=== PATIENT | male | born 2000 ===

== ENCOUNTER 2022-01-08 16:47 | Emergency (ER) | payer SELFPAY ==
[2022-01-08 18:09] VITALS: BP 128/66
== END 2022-01-08 21:16 | disposition left against medical advice (07) ==
LOC: ED 16:47
DX: M79.646 Pain in unspecified finger(s) (principal); Z53.21 Procedure and treatment not carried out due to patient leaving prior to being seen by health care provider; T14.8XXA Other injury of unspecified body region, initial encounter

== ENCOUNTER 2022-04-07 20:34 | Emergency (ER) | payer BC ==
[2022-04-07 23:25] VITALS: BP 125/81
[2022-04-08] MEDS ORDERED: IBUPROFEN 600 MG TAB PO ONE (00:49)
[2022-04-08] MEDS ORDERED: ACETAMINOPHEN 500 MG TAB PO ONE (00:49)
[2022-04-08] MEDS ORDERED: NEOMY 3.5 MG/BACIT 400 UNITS/POLY B 5000 UNITS/GM OINT PACKET TP ONE (00:49)
[2022-04-08] MEDS ORDERED: AMOXICILLIN/K CLAV 875/125MG TAB PO ONE (00:52)
--- NOTE | 2022-04-08 01:23 | Emergency Department Report ---
ED Animal Bite HPI - General Chief Complaint: Animal Bite Stated Complaint: DOG BITE Source: patient Mode of arrival: Ambulatory Limitations: No Limitations - History of Present Illness Initial Comments: Patient is a 21-year-old -[place] male with no past medical history presents to the ED with complaint of acute onset persistent left thigh pain due to multiple puncture wounds from a dog bite about 7 hours ago. Patient states that he was play fighting with his girlfriend when the family's dog attacked him and bit him on the left thigh. Patient states that he suspects that the dog is fully vaccinated. Patient states that the pain has been constant and persistent and that he has not been able to sleep because of worsening pain. Patient denies dizziness, syncope, nausea, vomiting, chest pain, shortness of breath, fall, numbness and tingling or weakness of lower extremities bilaterally. MD Complaint: animal bite, animal-related injury (dog bite injury), other (left thigh multiple puncture wounds) -: Sudden, hour(s) (7) Location: other (left thigh) Left: Thigh (multiple puncture wounds from dog bite) Animal: dog Animal Control Notified: No Description: household pet, immunizations UTD, appeared well Mechanism: bite, scratch, contact with mucous membr Pain Description: sharp, constant Severity scale (0 -10): 8 Context: provoked Associated Symptoms: bleeding. denies: erythema, discharge from wound, fever, chills, rash, loss of consciousness, cough, diaphoresis, shortness of breath Treatments Prior to Arrival: wound dressing(s), irrigation - Related Data Patient Tetanus UTD: Yes Previous Rx's Medication Instructions Recorded Last Taken Type Amoxicillin/K Clav Tab [Augmentin 1 tab PO Q12HR #20 tab 04/08/22 Unknown Rx 875 mg] Ibuprofen [Motrin] 800 mg PO Q8HR PRN #30 tablet 04/08/22 Unknown Rx Allergies Allergy/AdvReac Type Severity Reaction Status Date / Time No Known Allergies Allergy Unverified 01/08/22 17:57 ED Review of Systems ROS: Stated complaint: DOG BITE Other details as noted in HPI Constitutional: denies: chills, fever Eyes: denies: eye pain, eye discharge, vision change ENT: denies: ear pain, throat pain Respiratory: denies: cough, shortness of breath, wheezing Cardiovascular: denies: chest pain, palpitations Endocrine: no symptoms reported Gastrointestinal: denies: abdominal pain, nausea, diarrhea Genitourinary: denies: urgency, dysuria Musculoskeletal: arthralgia (Left thigh pain due to multiple puncture wounds from a dog bite), myalgia. denies: back pain, joint swelling Skin: other (Multiple puncture wounds on left thigh from dog bite). denies: rash, lesions Neurological: denies: headache, weakness, paresthesias Psychiatric: denies: anxiety, depression Hematological/Lymphatic: denies: easy bleeding, easy bruising ED Past Medical Hx - Medications Home Medications: Home Medications Medication Instructions Recorded Confirmed Last Taken Type Amoxicillin/K Clav Tab [Augmentin 1 tab PO Q12HR #20 tab 04/08/22 Unknown Rx 875 mg] Ibuprofen [Motrin] 800 mg PO Q8HR PRN #30 tablet 04/08/22 Unknown Rx ED Physical Exam - General Limitations: No Limitations General appearance: alert, in no apparent distress - Head Head exam: Present: atraumatic, normocephalic, normal inspection - Eye Eye exam: Present: normal appearance, PERRL, EOMI Pupils: Present: normal accommodation - ENT ENT exam: Present: normal exam, normal orophraynx, mucous membranes moist, TM's normal bilaterally, normal external ear exam - Neck Neck exam: Present: normal inspection, full ROM. Absent: tenderness - Respiratory Respiratory exam: Present: normal lung sounds bilaterally. Absent: respiratory distress, wheezes, rales, rhonchi, chest wall tenderness, accessory muscle use, prolonged expiratory - Cardiovascular Cardiovascular Exam: Present: regular rate, normal rhythm, normal heart sounds. Absent: systolic murmur, diastolic murmur, rubs, gallop - GI/Abdominal GI/Abdominal exam: Present: soft, normal bowel sounds. Absent: tenderness, guarding, rebound, hyperactive bowel sounds, hypoactive bowel sounds, organomegaly, mass - Extremities Exam Extremities exam: Present: normal inspection, full ROM, tenderness (Palpable left thigh tenderness due to multiple puncture wounds from dog bite), normal capillary refill. Absent: pedal edema, joint swelling, calf tenderness - Back Exam Back exam: Present: normal inspection, full ROM. Absent: tenderness, CVA tenderness (R), CVA tenderness (L), muscle spasm, paraspinal tenderness, vertebral tenderness - Neurological Exam Neurological exam: Present: alert, oriented X3, CN II-XII intact, normal gait, reflexes normal - Psychiatric Psychiatric exam: Present: normal affect, normal mood - Skin Skin exam: Present: warm, dry, normal color, abrasion (Multiple abrasions on upper extremities), other (Multiple puncture wounds on left thigh from dog bite with localized tenderness). Absent: intact, rash ED Course Vital Signs 04/07/22 23:22 Temperature 98.8 F Pulse Rate 98 H Respiratory 18 Rate Blood Pressure 125/81 [Right] O2 Sat by Pulse 96 Oximetry Critical care attestation.: If time is entered above; I have spent that time in minutes in the direct care of this critically ill patient, excluding procedure time. ED Disposition Clinical Impression: Dog bite of left thigh without complication Qualifiers: Encounter type: initial encounter Qualified Code(s): S71.152A - Open bite, left thigh, initial encounter; W54.0XXA - Bitten by dog, initial encounter Puncture wound of multiple sites of left lower extremity Qualifiers: Encounter type: initial encounter Qualified Code(s): S81.832A - Puncture wound without foreign body, left lower leg, initial encounter Abrasion of multiple sites of upper extremity and shoulder Qualifiers: Encounter type: initial encounter Laterality: unspecified laterality Qualified Code(s): S40.819A - Abrasion of unspecified upper arm, initial encounter; S40.219A - Abrasion of unspecified shoulder, initial encounter Disposition: HOME / SELF CARE / HOMELESS Is pt being admited?: No Does the pt Need Aspirin: No Condition: Stable Instructions: Animal Bite, Adult, [id number], Puncture Wound, [id number], Abrasion, [id number] Additional Instructions: Take medication with food, drink plenty of fluids, follow-up with your primary care physician in 7 to 10 days for reevaluation. Return to the ED immediately if symptoms get worse. Prescriptions: Amoxicillin/K Clav Tab [Augmentin 875 mg] 1 tab PO Q12HR #20 tab Ibuprofen [Motrin] 800 mg PO Q8HR PRN #30 tablet PRN Reason: Pain , Severe (7-10) Referrals: [facility] [Provider Group] - 7-10 days Forms: Work/School Release Form(ED) Time of Disposition: 01:24 Print Language: ROMANSH
[2022-04-08] MEDS ORDERED: NEOMY 3.5 MG/BACIT 400 UNITS/POLY B 5000 UNITS/GM OINT PACKET TP SCH (08:00)
== END 2022-04-08 03:01 | disposition home or self-care (01) ==
LOC: ED 20:34
DX: S40.219A Abrasion of unspecified shoulder, initial encounter (principal); S71.152A Open bite, left thigh, initial encounter; S81.832A Puncture wound without foreign body, left lower leg, initial encounter; W54.0XXA Bitten by dog, initial encounter; Y93.89 Activity, other specified; Y92.89 Other specified places as the place of occurrence of the external cause; Y99.8 Other external cause status
CPT/HCPCS: 99282